=== PATIENT | female | born 1985 | race Asian ===

== ENCOUNTER 2017-04-17 21:09 | Emergency (ER) | payer OTHER ==
[~2017-04-17] VITALS: Ht 157.5 cm; Wt 61.2 kg
--- NOTE | ~2017-04-17 | CR195 ---
[facility] A Service of [facility] RADIOLOGY TEXT RESULTS PATIENT: AZALIA DILLON LOCATION: [facility] : 89 UNIT #: [id number] AGE: [address]: Kapil Lu DO SEX: F ORDER DR: [id number] [facility] [address] [place], [place] [address] [id number] E MR#: [id number] Acc #: [id number] NAME: AZALIA DILLON : 1985 SEX: F STUDY DATE/TIME: 04/18/2017 03:27 UNIT: [facility] ROOM: STUDY DESCRIPTION: CR Neck Soft Tissue Attending Physician: Kapil Lu D.O. Ordering Physician: Kapil Lu D.O. Primary Care Physician: Generic Doctor Not In System MEDICAL IMAGING REPORT This report is preliminary unless electronic signature is present EXAM Neck x-ray, 04/18 at 03:27. INDICATIONS Sore throat for the last 2 days. FINDINGS Two views of the neck were obtained. Epiglottis is normal. Prevertebral soft tissues are normal. Airway appears widely patent. Bones are normal. IMPRESSION Normal soft tissue views of the neck. Dictated by... Abilio Martin Jr., M.D. THIS IS AN ELECTRONICALLY VERIFIED REPORT Abilio Martin Jr., M.D. at 04/21/2017 7:13 AM ANGELICA/jacqueline TD: 04/18/2017 10:00 JOB #: [id number] MEDICAL IMAGING REPORT Page 1 of 1 COPY
--- NOTE | ~2017-04-17 | CR72 ---
[facility] A Service of [facility] RADIOLOGY TEXT RESULTS PATIENT: AZALIA DILLON LOCATION: [facility] : 89 UNIT #: [id number] AGE: [address]: Kapil Lu DO SEX: F ORDER DR: [id number] [facility] [address] [place], [place] [address] [id number] E MR#: [id number] Acc #: [id number] NAME: AZALIA DILLON : 1985 SEX: F STUDY DATE/TIME: 04/18/2017 01:09 UNIT: [facility] ROOM: STUDY DESCRIPTION: CR Chest Single View Portable Attending Physician: Kapil Lu D.O. Ordering Physician: Kapil Lu D.O. Primary Care Physician: Generic Doctor Not In System MEDICAL IMAGING REPORT This report is preliminary unless electronic signature is present EXAM Portable chest, 04/18, 01:09. INDICATIONS Chest pain and tightness with sore throat for 2 days. FINDINGS A single AP portable view of the chest shows both lungs to be clear. The heart is normal in size. The mediastinal contour is normal. No significant bone abnormalities are seen. IMPRESSION Normal portable chest. Dictated by... Abilio Martin Jr., M.D. THIS IS AN ELECTRONICALLY VERIFIED REPORT Abilio Martin Jr., M.D. at 04/21/2017 7:13 AM ANGELICA/zena TD: 04/18/2017 09:45 JOB #: [id number] MEDICAL IMAGING REPORT Page 1 of 1 COPY
--- NOTE | ~2017-04-17 | EKG ---
PATIENT: AZALIA DILLON UNIT #: [id number] Ventricular Rate: 73 BPM Atrial Rate: 73 BPM P-R Interval: 176 ms QRS Duration: 82 ms Q-T Interval: 362 ms QTC Calculation(Bezet): 398 ms P [place]: 50 degrees Calculated R [place]: 32 degrees Calculated T [place]: 46 degrees Diagnosis Line: Normal sinus rhythm with sinus arrhythmia Diagnosis Line: Normal ECG Diagnosis Line: When compared with ECG of 17-APR-2017 21:11, Diagnosis Line: (unconfirmed) Diagnosis Line: Previous ECG has undetermined rhythm, needs review Diagnosis Line: Confirmed by DOYLE CONTRERAS MD ([id number]) on Diagnosis Line: 04/18/2017 11:37:26 AM INTERPRETING MD: BEN MATIAS
[2017-04-18 02:18] LABS: POC - CKMB <1.0 ng/mL (0.0-7.9); POC - TROPONIN <0.05 ng/mL (<=0.05)
[2017-04-18 02:22] LABS: BASOPHIL% 0.4 % (0-2.5); EOSINOPHIL# 0.1 X10e3 (0-0.7); EOSINOPHIL% 0.9 % (0.0-7.0); HEMATOCRIT 39.1 % (35.0-45.0); HEMOGLOBIN 13.5 gm/dL (12.0-16.0); LYMPHOCYTE# 2.8 X10e3 (1.0-3.5); LYMPHOCYTE% 33.6 % (17.0-45.0); MEAN CELL VOLUME 88.9 FL (83-96); MEAN CORPUSCULAR HEMOGLOBIN 30.8 PG (28-34); MEAN CORPUSCULAR HGB CONC 34.6 g/dL (30-36); MEAN PLATELET VOLUME 8.1 FL (6.5-11.5); MONOCYTE# 0.7 X10e3 (0-1.0); MONOCYTE% 8.3 % (3.0-12.0); NEUTROPHIL# 4.8 X10e3 (1.5-7.1); NEUTROPHIL% 56.8 % (40-75); PLATELET COUNT 240 X10e3 (140-420); WHITE BLOOD COUNT 8.4 X10e3 (4.0-10.5)
[2017-04-18 02:24] LABS: DIFF IND NO
[2017-04-18 02:38] LABS: PARTIAL THROMBOPLASTIN TIME 25.7 SECONDS (23.5-31.3); PROTHROMBIN TIME (PATIENT) 10.6 SECONDS (10.0-11.7)
[2017-04-18 02:48] LABS: ALBUMIN SERUM 4.1 g/dL (3.5-5.0); BILIRUBIN, DIRECT 0.1 mg/dL (0.0-0.2); BILIRUBIN,INDIRECT 0.7 mg/dL (0.0-0.9); BILIRUBIN,TOTAL 0.8 mg/dL (0.2-2.0); CALCIUM SERUM 9.4 mg/dL (8.4-10.2); CREATININE SERUM 0.4 mg/dL (0.6-1.4); GLOM FILT RATE Estimated 140.8 mL/min (>60); POTASSIUM 3.8 mmol/L (3.5-5.1); PROTEIN TOTAL SERUM 7.8 g/dL (6.0-8.3)
== END 2017-04-18 04:12 | disposition home or self-care (01) ==
LOC: CED 21:09
PROVIDERS: Emergency Medicine
DX: R07.89 Other chest pain (principal)
CPT/HCPCS: 36415; 70360; 71010; 80048; 80076; 82553; 83690; 84484; 85025; 85379; 85610; 85730; 87651; 93005; 99285